=== PATIENT | female | born 1950 | race Caucasian/White ===

== ENCOUNTER → 2017-08-19 11:31 | Outpatient (CLI) | payer MEDICARE, OTHER, SELFPAY ==
--- NOTE | 2017-08-19 | DI.CT.S_ITS ---
PROCEDURE: CT CHEST ABD PEL W CON INDICATIONS: BILATERAL SCIATICA NEOPLASM OF BRAIN LOOKING FOR CANCER TECHNIQUE: After the administration of intravenous contrast, 5 mm thick sections acquired from the lung apices to the symphysis. 5 mm coronal and sagittal reformats were performed, with additional 7 mm MIP reformats through the lungs. For radiation dose reduction, the following was used: automated exposure control, adjustment of mA and/or kV according to patient size. COMPARISON: None. FINDINGS: Image quality: Excellent. CHEST: Lungs and pleura: No acute airspace opacities. No pleural effusions or pneumothorax. Central and peripheral airways appear patent and normal in caliber. Mediastinum: Heart size is normal. No pericardial effusion. No mediastinal or hilar adenopathy by size criteria. Thoracic aorta and central pulmonary arteries are normal in size. Esophagus is normal in caliber. No hiatal hernia. Chest wall: No axillary or supraclavicular adenopathy by size criteria. Thyroid gland appears normal. ABDOMEN: Solid organs: Liver is normal in size and enhancement. Gallbladder appears normal. Biliary system is non dilated. Pancreas enhances normally. Spleen is normal in size and enhancement. No adrenal nodules. Kidneys demonstrate normal size and enhancement, without hydronephrosis. Peritoneum and bowel: Bowel loops demonstrate normal wall thickness and caliber. No free fluid or air. Nodes and vessels: No retroperitoneal or mesenteric adenopathy by size criteria. Aorta and inferior vena cava are normal in size. Miscellaneous: No ventral hernias. PELVIS: Genitourinary: Bladder wall thickness is normal. Miscellaneous: No inguinal hernias or adenopathy. Sigmoid diverticulosis, no acute diverticulitis. Bones: No suspicious bony lesions. No vertebral body compression fractures. IMPRESSION: 1. The patient was not premedicated for potential intravenous contrast allergic reaction, and the study was performed with the supervising radiologist approval and with radiology department nursing staff present during the injection. The patient did report mild itching at the IV site of injection and also over the facial region near the lips. The patient remained in the radiology department for staged intermittent observation, the itching sensation resolved after 15 minutes, and the patient was advised that any future intravenous contrast injection will require a full premedication regimen given the potential risk of higher allergic contrast reactions. 2. No underlying infection or neoplasm found. Sigmoid diverticulosis without acute diverticulitis. Dictated by: Vickey Turner M.D. on 08/19/2017 at 14:06 Approved by: Vickey Turner M.D. on 08/19/2017 at 14:24
--- NOTE | 2017-08-19 | DI.MRI.S_ITS ---
PROCEDURE: MR LUMBAR SPINE WO/W CON INDICATIONS: LOW BACK PAIN TECHNIQUE: Noncontrast sagittal T1 spin echo and T2 fast spin echo, sagittal STIR, axial T1 and T2 fast spin echo through the lumbar spine. In cases with scoliosis, additional coronal T2 fast spin echo may be performed. After the administration of contrast, sagittal and axial T1 spin echo with fat saturation through the lumbar spine. COMPARISON: [facility], CT, ABDOMEN/PELVIS WITH CONTRAST, 04/19/2014, 9:46. [facility], CT, ABDOMEN/PELVIS WITH CONTRAST, 05/27/2017, 23:13. FINDINGS: Image quality: Excellent. Alignment and curvature: Mild dextroconvex scoliotic curvature is seen. Minimal anterolisthesis is seen at the L4-L5 level. Marrow: Marrow is of normal overall signal. No acute vertebral body compression fractures. No suspicious marrow enhancement. Scattered foci are seen, which are hyperintense on T1-weighted and T2-weighted imaging, which are most consistent with benign vertebral body hemangiomas. Spinal cord: Conus medullaris terminates at the L1 level. Visualized spinal cord demonstrates normal signal, without suspicious enhancement. Paraspinous soft tissues: No paravertebral masses or abnormal enhancement. T12-L1: Normal appearance. L1-L2: Normal appearance. L2-L3: Normal appearance. L3-L4: Mild loss of disc height is seen. Loss of disc signal is seen. Mcxn-hb-ffyvnxlg disc bulge is seen at this level, which is eccentric to the left. There is mild bilateral neural foraminal narrowing seen. Mild central canal narrowing is seen. L4-L5: Minimal anterolisthesis is seen at this level. The disc height is well-preserved. Loss of disc signal is seen at this level. Moderate generalized disc bulge is seen. Moderate to prominent facet hypertrophy is seen, left worse than right. Moderate hypertrophy of the ligamentum flavum can be seen. There is mild to moderate left-sided and mild right-sided neural foraminal narrowing seen. Moderate central canal narrowing is seen, as on series 5 image 12. L5-S1: The disc height is well-preserved. Loss of disc signal is seen at this level. Mild generalized disc bulge is seen. Ywvg-gn-bnbrarwi facet hypertrophy is seen. No significant neural foraminal or central canal narrowing are seen. IMPRESSION: No suspicious bony lesions or abnormal enhancement are detected. Numerous benign-appearing, nonenhancing vertebral body hemangiomas can be seen. Lumbar spine degenerative changes are seen, which are worst at the L4-L5 level. [id number] by: Luís Hernandez M.D. on 08/19/2017 at 11:46 Approved by: Luís Hernandez M.D. on 08/19/2017 at 11:54
== END ==
PROVIDERS: Family Provider Family Medicine; PCP Family Medicine
DX: M47.9 Spondylosis, unspecified (principal); D49.6 Neoplasm of unspecified behavior of brain; K57.30 Diverticulosis of large intestine without perforation or abscess without bleeding
CPT/HCPCS: 71260; 72158; 74177; A9579; Q9967

== ENCOUNTER → 2018-02-26 14:32 | Outpatient (CLI) | payer MEDICARE, OTHER, SELFPAY ==
--- NOTE | 2018-02-26 | DI.MG.S_ITS ---
BILATERAL DIGITAL SCREENING MAMMOGRAM 3D/2D WITH CAD: 02/26/2018 CLINICAL: Routine screening. Family history of breast cancer. Comparison is made to exams dated: 02/10/2017 mammogram, 01/10/2016 mammogram, and 01/08/2015 mamm[place] - [facility]. There are scattered fibroglandular elements in both breasts. Current study was also evaluated with a Computer Aided Detection (CAD) system. No significant masses, calcifications, or other findings are seen in either breast. There has been no significant interval change. IMPRESSION: NEGATIVE There is no mammographic evidence of malignancy. A 1 year screening mammogram is recommended. This exam was interpreted at Station ID: [id number]. NOTE: For mammograms, a report in lay terms will be sent to the patient. Approximately 15% of breast malignancies will not be visualized mammographically. In the management of a palpable breast mass, a negative mammogram must not discourage biopsy of a clinically suspicious lesion. Electronically Signed By: Tereso mchugh/joaquin:02/26/2018 18:19:34 letter sent: Normal Exam ACR BI-RADS Category 1: Negative [id number]
== END ==
PROVIDERS: Family Provider Family Medicine; PCP Family Medicine; Visit Provider Family Medicine
DX: Z12.31 Encounter for screening mammogram for malignant neoplasm of breast (principal); Z80.3 Family history of malignant neoplasm of breast
CPT/HCPCS: 77063; 77067

== ENCOUNTER → 2018-07-21 08:41 | Outpatient (CLI) | payer MEDICARE, OTHER, SELFPAY ==
--- NOTE | 2018-07-21 | DI.MRI.S_ITS ---
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 TECHNIQUE: Noncontrast axial T1 spin echo, axial T2 fast spin echo, sagittal and axial FLAIR, coronal T2 fast spin echo, axial gradient echo, axial diffusion and ADC through the brain. After the administration of contrast, axial and coronal 3D VIBE or T1 spin echo with fat saturation through the brain. COMPARISON: [facility], [facility], MRI HEAD W/WO CONTRAST, 06/29/2017, 13:24. FINDINGS: Image quality: Excellent. CSF Spaces: Basal cisterns are patent. No extra-axial fluid collections. Ventricles are normal in size and shape. Brain: No midline shift. No intracranial bleeds or new masses. No new area of abnormal intracranial enhancement. As was previously the case there is an ovoid mass lesion that appears centered within the hypothalamus, and invaginates against the floor of the third ventricle, protruding cephalad into the anterior third of the third ventricle with the component of this mass at that site having mildly enlarged from 7 mm to 8 mm in maximal dimension. The mass itself is estimated at measuring up to 1.0 cm AP and 1.3 cm craniocaudad from current sagittal flair imaging pulse sequence. A similar pole sequences not available from the comparison study from 06/29/17 but the mass was estimated in the same areas to measure 9 x 12 mm. The comparison study from 01/23/17 is not available for review. The brainstem appears normal. Diffusion-weighted images demonstrate no acute ischemic insults. No chronic ischemic insults. Normal intravascular flow voids are present. Skull and face: Calvarial marrow is normal in signal. Orbits appear normal. Sinuses: Sinuses and mastoids appear clear. IMPRESSION: 1. The patient has a series of brain MR studies from 01/23/17, 06/29/17 and the current examination 07/21/18. The first examination, from [facility], is not available for review and should be obtained and added to the PACS system here. An addendum report referencing the initial study is recommended when the images are available given what appears to be interval enlargement in size over time from the [facility] study to the current examination approximately one year later. 2. The mass lesion present is centered at the hypothalamus,, is enhancing, and appears to have enlarged by approximately 1 mm in all dimensions. Obstructive hydrocephalus is not currently present but represents a significant risk given enlargement over time. No new lesion elsewhere is seen. 3. 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 Dictated by: Vickey Turner M.D. on 07/21/2018 at 9:26 Approved by: Vickey Turner M.D. on 07/21/2018 at 10:02
== END ==
PROVIDERS: PCP Family Medicine; Visit Provider Family Medicine
DX: D46.9 Myelodysplastic syndrome, unspecified (principal)
CPT/HCPCS: 70553; A9579

== ENCOUNTER → 2019-03-09 10:31 | Outpatient (CLI) | payer MEDICARE, OTHER, SELFPAY ==
--- NOTE | 2019-03-09 | DI.MG.S_ITS ---
BILATERAL DIGITAL SCREENING MAMMOGRAM 3D/2D WITH CAD: 03/09/2019 CLINICAL: Routine screening. Family history of breast cancer. Comparison is made to exams dated: 02/10/2017 mammogram and 01/10/2016 mammogram - [facility]. There are scattered fibroglandular elements in both breasts. Current study was also evaluated with a Computer Aided Detection (CAD) system. No significant masses, calcifications, or other findings are seen in either breast. There has been no significant interval change. IMPRESSION: NEGATIVE There is no mammographic evidence of malignancy. A 1 year screening mammogram is recommended. This exam was interpreted at Station ID: [id number]. NOTE: For mammograms, a report in lay terms will be sent to the patient. Approximately 15% of breast malignancies will not be visualized mammographically. In the management of a palpable breast mass, a negative mammogram must not discourage biopsy of a clinically suspicious lesion. Electronically Signed By: Christine vigil/joaquin:03/09/2019 15:28:47 letter sent: Normal Exam ACR BI-RADS Category 1: Negative [id number]
== END ==
PROVIDERS: PCP Family Medicine; Visit Provider Family Medicine
DX: Z12.31 Encounter for screening mammogram for malignant neoplasm of breast (principal); Z80.3 Family history of malignant neoplasm of breast
CPT/HCPCS: 77063; 77067

== ENCOUNTER → 2019-04-20 15:07 | Outpatient (CLI) | payer MEDICARE, OTHER, SELFPAY ==
--- NOTE | 2019-04-20 15:12 | DI.RAD.S_ITS ---
PROCEDURE: XR LUMBAR SPINE MIN 4V INDICATIONS: Left lower extremity pain TECHNIQUE: 5 views of the lumbar spine were acquired. COMPARISON: None. FINDINGS: Bones: 5 nonrib-bearing vertebrae are present. There is mild dextroscoliotic bony alignment. No vertebral body compression fractures. No suspicious bony lesions. Degenerative disc disease is mild along the lumbosacral line and facet osteoarthritis becomes progressively more prominent from L3 inferiorly to the degree that significant foraminal stenosis likely is present at L4-5 and especially L5-S1. Soft tissues: Overlying bowel gas pattern is normal. No suspicious soft tissue calcifications. Oblique images: No pars defects. IMPRESSION: Mild degenerative disc disease, mild to moderate facet osteoarthritis, mild convex rightward scoliosis centered at L3. No recent compression fracture found. The area of potential significant foraminal stenosis is at L4-5 but to a greater degree L5-S1. Dictated by: Vickey Turner M.D. on 04/20/2019 at 16:22 Approved by: Vickey Turner M.D. on 04/20/2019 at 16:24
== END ==
PROVIDERS: PCP Family Medicine; Referring Provider Physical Medicine & Rehabilitation; Visit Provider Physical Medicine & Rehabilitation
DX: M79.605 Pain in left leg (principal); M51.37 Other intervertebral disc degeneration, lumbosacral region; M47.816 Spondylosis without myelopathy or radiculopathy, lumbar region; M41.86 Other forms of scoliosis, lumbar region; M51.26 Other intervertebral disc displacement, lumbar region; M25.559 Pain in unspecified hip; M16.9 Osteoarthritis of hip, unspecified; G89.29 Other chronic pain
CPT/HCPCS: 72110; 99214

== ENCOUNTER → 2019-04-27 12:29 | Outpatient (CLI) | payer MEDICARE, OTHER, SELFPAY ==
--- NOTE | 2019-04-27 12:30 | DI.MRI.S_ITS ---
PROCEDURE: MR LUMBAR SPINE WO CON INDICATIONS: Left L4-5 radicular TECHNIQUE: Noncontrast sagittal T1 spin echo and T2 fast echo, sagittal STIR, axial T1 and T2 fast spin echo through the lumbar spine. In cases with scoliosis, additional coronal T2 fast spin echo may be performed. COMPARISON: [facility], MR, MR LUMBAR SPINE WO/W CON, 08/19/2017, 12:01. FINDINGS: Image quality: Excellent. Alignment and Curvature: Mild degenerative anterolisthesis of L4 on L5 measuring 3 mm. Trace degenerative retrolisthesis of L3 on L4. Bone Marrow: Marrow is of normal overall signal. No acute vertebral body compression fractures. Spinal Cord: Conus medullaris terminates at the L1-L2 level. Visualized cord demonstrates normal signal and size. Paraspinous Soft Tissues: No paravertebral masses. L1-L2: Normal appearance. L2-L3: Normal appearance. L3-L4: No significant change. Mild disc height loss. Mild disc bulge. Mild facet hypertrophy. Mild canal stenosis. No significant foraminal stenosis. L4-L5: Mild degenerative anterolisthesis of L4 on L5, slightly progressed, secondary to prominent facet arthropathy. Interval increase in diffuse disc bulge, large. Interval progression of canal stenosis, now severe. Mild bilateral foraminal narrowing. L5-S1: Posterior annulus tear plus mild disc bulge. Facet and ligament hypertrophy. No canal stenosis or foraminal stenosis. IMPRESSION: 1. Interval progression of multifactorial canal stenosis at L4-L5, now severe. 2. Mild canal stenosis at L3-L4. 3. Multilevel facet arthropathy. Dictated by: Robert Rose M.D. on 04/27/2019 at 13:09 Approved by: Robert Rose M.D. on 04/27/2019 at 13:16
== END ==
PROVIDERS: PCP Family Medicine; Referring Provider Family Medicine; Visit Provider Physical Medicine & Rehabilitation
DX: M47.26 Other spondylosis with radiculopathy, lumbar region (principal); M48.061 Spinal stenosis, lumbar region without neurogenic claudication; M25.559 Pain in unspecified hip; G89.29 Other chronic pain
CPT/HCPCS: 72148

== ENCOUNTER → 2019-09-20 11:00 | Outpatient (CLI) | payer MEDICARE, OTHER, SELFPAY ==
[2019-09-20 12:01] LABS: Add Manual Diff / Slide Review NO; Basophils Absolute Auto 0 /uL (0-100); Basophils Percent Auto 0.7 % (0-2); Eosinophils Absolute Auto 100 /uL (0-450); Eosinophils Percent Auto 3.5 % (2-4); Hematocrit 41.2 % (36-46); Hemoglobin 13.7 g/dL (12.0-16.0); Lymphocytes Absolute Auto 1300 /uL (1100-4500); Mean Corpuscular HGB Conc 33.2 % (30-36); Mean Corpuscular Hemoglobin 30.7 PG (26-34); Mean Corpuscular Volume 92.4 fL (80-100); Monocytes Absolute Auto 500 /uL (0-900); Monocytes Percent Auto 12.4 % (3-14); Neutrophils Absolute Auto 1800 /uL (1500-7000); Neutrophils Percent Auto 48.4 % (50-75); Platelet Count 279 X10^3/uL (150-400); Red Blood Cell Count 4.46 X10^6/uL (4.0-5.2); Red Cell Distribution Width 14.1 % (11.6-14.8); White Blood Cell Count 3.8 X10^3/uL (4.5-11.0)
[2019-09-20 12:18] LABS: Hemoglobin A1C% w Est Avg Glu 6.8 % (4.0-6.0)
[2019-09-20 12:36] LABS: Carbon Dioxide 28 mmol/L (22-32); Chloride 99 mmol/L (98-107); HEMOLYSIS < 15 (0-50); Potassium 4.8 mmol/L (3.4-5.1); Sodium 133 mmol/L (137-145)
== END ==
PROVIDERS: PCP Family Medicine; Referring Provider Orthopaedic Surgery; Visit Provider Orthopaedic Surgery
DX: Z01.812 Encounter for preprocedural laboratory examination (principal); Z01.818 Encounter for other preprocedural examination; R73.9 Hyperglycemia, unspecified
CPT/HCPCS: 36415; 80051; 83036; 85025; 93005

== ENCOUNTER 2019-09-28 06:16 | Inpatient (IN) | payer MEDICARE, OTHER, SELFPAY ==
[2019-09-21 08:54] VITALS: BMI 22.1
[2019-09-28] VITALS (24 sets, daily range): BP systolic 44–162; BP diastolic 30–85; PULSE 38–80; RESP 9–17; TEMP 35.3–36.6; O2SAT 95–100; BMI 22.3
--- NOTE | 2019-09-28 | DI.RAD.S_ITS ---
PROCEDURE: XR PELVIS 1-2V INDICATIONS: POST OP TECHNIQUE: Single frontal view(s) of the pelvis acquired. COMPARISON: None. FINDINGS: Bones: No fractures or dislocations and postoperative appearance of left total hip arthroplasty shows normal alignment.. No suspicious bony lesions. Soft tissues: Visualized bowel gas pattern is normal. No suspicious soft tissue calcifications. IMPRESSION: Normal alignment is stab wished after left total hip arthroplasty. Mild to moderate osteoarthritis noted at the right hip. Dictated by: Vickey Turner M.D. on 09/28/2019 at 12:38 Approved by: Vickey Turner M.D. on 09/28/2019 at 14:03
[2019-09-28] MEDS: CELECOXIB 200 MG CAPSULE PO (07:04)
[2019-09-28] MEDS: LACTATED RINGERS 1,000 ML 42 ML IV ×2 (07:08→10:22)
[2019-09-28] MEDS: ACETAMINOPHEN 325 MG TABLET 975 MG PO (07:42)
--- NOTE | 2019-09-28 07:42 | SUR.PREOP ---
Per Dr. Coates, verbal order received to give only 650mg of Tylenol in pre-op as pt took 250mg of Tylenol this morning at 0530 prior to coming in to facility for surgery.
[2019-09-28] MEDS: CEFAZOLIN 2 GM/100 ML FROZ.PIGGY IV ×3 (08:00→23:27)
--- NOTE | 2019-09-28 08:04 | PM.PREOP ---
Pre-operative Note COVID-19 COVID-19 status: Negative Result date/Date tested (Pos, Neg/Pending): 09/26/19 Interval Note History & Physical reviewed/Exam performed by Physician: Yes Changes to H&P: No
--- NOTE | 2019-09-28 08:04 | PM.HP.1 ---
History of Present Illness History of Present Illness Date Patient Seen: 09/28/19 Time Patient Seen: 08:04 Chief complaint: Left Total Hip Arthroplasty *OPB* Narrative: 69-year-old female with severe left hip degenerative joint disease, admitted for left total hip arthroplasty. Patient History Medical History Anxiety about health (Acute) Brain tumor (benign) (Acute 12/2018) Chronic hip pain (Acute) Degenerative joint disease (DJD) of hip (Acute) Gastritis (Acute) Herniated nucleus pulposus, L4-5 (Acute) HTN (hypertension) (Acute) Hx of hypertensive crisis (Acute 12/2018) Hypothyroid (Acute) Pelvic floor dysfunction (Acute) Type II diabetes mellitus (Acute) Surgical History History of bilateral salpingo-oophorectomy (BSO) (Acute) History of bladder surgery (Acute 12/2017) History of vaginal hysterectomy (Acute) Hx of cholecystectomy (Acute 08/16/19) Hx of tonsillectomy (Acute) Family & Social History Family History Father Diabetes mellitus Colon cancer Mother Diabetes mellitus Family/Other Hussein disease Family/Other Cancer Social History: household members spouse Prior Living Arrangements House Safety & Behavioral: Feels Safe in Current Yes Environment Been Physically Hurt or No Threatened By a Person Suicidal Ideation Description None Suicide Plan Description No Plan Tobacco & Substance use: Smoking Status Never smoker alcohol intake never Substance Use Type does not use Meds Home Medications and Allergies Home Medications Medication Instructions Recorded Confirmed Type alprazolam 0.25 mg PO BEDTIME #0 05/27/17 09/28/19 History diazepam [Valium] 2.5 mg PO DAILY PRN #0 05/27/17 09/28/19 History estradiol [Estrace] 1 gm VAGINAL 2XW #0 05/27/17 09/28/19 History levothyroxine [Synthroid] 25 mcg PO QDAY #0 05/27/17 09/28/19 History meclizine 12.5 mg PO DAILY PRN #0 05/27/17 09/28/19 History pantoprazole [Protonix] 40 mg PO QDAY #20 tab 05/28/17 09/28/19 Rx acetaminophen 325 mg capsule 500 mg PO BID cap 03/09/19 09/28/19 History cholecalciferol (vitamin D3) 125 2,000 unit PO DAILY 03/09/19 09/28/19 History mcg (5,000 unit) capsule metoprolol succinate 50 mg capsule 50 mg PO DAILY 03/09/19 09/28/19 History sprinkle, ext. release 24 hr diphenhydramine HCl [Benadryl] 12.5 mg PO DAILY PRN 09/21/19 09/28/19 History hydrocodone-acetaminophen 0.5 tab PO Q4-6H PRN 09/21/19 09/28/19 History metformin 1,000 mg PO DAILY 09/21/19 09/28/19 History Allergies Allergy/AdvReac Type Severity Reaction Status Date / Time IVP dye Allergy Mild itching Uncoded 09/21/19 09:01 Review of Systems Review of Systems ROS: Yes All systems reviewed with the patient and are negative except as otherwise documented Exam Vital Signs (past 8 hours): - 09/28/19 06:51 Temperature 97.8 F Pulse Rate 69 Respiratory Rate 17 Blood Pressure 162/85 H Pulse Oximetry 100 Oxygen Delivery Method Room Air Narrative Exam Narrative: Patient is afebrile and vital signs are stable. Awake alert oriented and conversant in no obvious distress. HEENT normocephalic atraumatic lungs clear to auscultation Heart regular rate and rhythm Abdomen benign Lower extremities neurovascular examination is intact. Limited left hip range of motion with pain on extremes of motion. Assessment & Plan Assessment & Plan narrative: 69-year-old female with severe left hip DJD. Plan left total hip arthroplasty. COVID-19 COVID-19 status: Negative Result date/Date tested (Pos, Neg/Pending): 09/26/19
--- NOTE | 2019-09-28 08:39 | SUR.OPER ---
Lateral on padded OR bed. Gel axillary roll. Arms secured on padded armboard with pillow supporting top arm. Padded hip positioner braces x4 - anterior and posterior chest and pelvis. Additional gel pad used anterior pelvis. Gel pad under bottom leg from knee to foot and secured with tape over sheet.
[2019-09-28] MEDS: MORPHINE 4 MG/ML INJ INJ (08:47)
[2019-09-28] MEDS: ROPIVACAINE 0.5% PF 5 MG/ML 20ML VIAL 10 ML INJ (08:47)
[2019-09-28] MEDS: KETOROLAC 30 MG/ML VIAL INJ (08:48)
[2019-09-28] MEDS: TRANEXAMIC ACID 1,000 MG VIAL 1000 MG INJ ×2 (09:11→09:18)
--- NOTE | 2019-09-28 09:52 | P.OP_ITS ---
Operative Date/Time/Diagnoses Date of procedure: 09/28/19 Time of procedure: 09:52 Pre-op diagnosis: Left hip degenerative joint disease Post-op diagnosis: same Procedure & Clinicians Procedure: Left total hip arthroplasty (CPT code 87267 with assistant superintendent for curriculum) Same procedure as scheduled: Yes Indications: 69-year-old female with severe left hip DJD. Pain with activities and at rest, limited ambulation activity tolerance, difficulties with ADLs, and failure of conservative treatment. Discussed nature of condition, treatment options risks and benefits. Patient elected proceed with total hip arthroplasty and gives informed consent. Surgeon: Ranjit Adkins Arch Cushion Skiving Machine Operator: Jose Enrique Calero Anesthesia Type: General and Spinal Operative Notes Closure Type: primary Specimen(s): none sent Prosthetic devices, grafts, tissues, transplants, or devices: Acetabulum: [employer] R3 acetabular component size 48 mm Femoral component: [employer] Anthology stem size 6 with high offset Femoral head: 32 mm + 4 Oxinium Estimated Blood Loss (mL): 100 Procedure in detail: After satisfaction induction of anesthetic, and administration of IV antibiotics, the patient was positioned in the lateral decubitus position with all bony prominences well padded and pelvic position secured using a hip microbiological laboratory technician positioning device. Left hip and lower extremity prepped and draped in the usual sterile fashion, 1st dose of intravenous tranexamic acid was administered, then a longitudinal incision was created centered over the greater trochanter and carried sharply through the skin and subcutaneous tissues down to the fascia celi which was divided longitudinally and retracted with a Charnley retractor. External rotators visualize, cut, tagged, and retracted posteriorly, then the capsule was cut in a T-type fashion with the corners tagged and retracted. Hip was dislocated and femoral neck cut made according to preoperative templating. Acetabular retractors then placed, and the acetabular labrum and osteophytes were excised. The acetabulum was then sequentially reamed to 47 mm with an excellent circumferential ream and fit with the trial. Trial was then removed. There is a large superolateral acetabular cyst which was debrided of the cyst lining then packed with bone graft taken f rom the reamings. A permanent size 48 mm James [employer]hew R3 acetabular component was selected, positioned, and impacted with satisfactory position and fixation achieved. Large anterior osteophyte was then removed. Permanent liner was then inserted with the elevated lip directed posteriorly. Soft tissue then removed off the lateral femoral neck in the lateral neck was entered using a box osteotome. T-handled reamers placed down the canal followed by sequential broaching to 6 with the final broach left in place for trial reduction which demonstrated excellent leg length, range of motion, and stability characteristics with a 32 mm + 4 trial ball with an extended offset neck. The trial and broach were removed, and a permanent size 6 high offset [employer] Anthology stem was selected and inserted with excellent position and fixation achieved. Another trial reduction yielded the above characteristics so the trial ball was exchanged for a permanent 32 mm +4 Oxinium ball. The hip was irrigated and reduced and excellent leg length range of motion and stability characteristics were achieved and maintained. Periarticular tissues were infiltrated with ropivacaine, morphine, and Toradol. The hip was copiously irrigated, and the capsule repaired with #2 Ethibond, and the piriformis was repaired back to the greater trochanter with the same. Fascia celi closed with interrupted #1 Ethibond sutures, and the subcutaneous tissues were closed in 2 layers of 0 Vicryl and 2 0 Vicryl. Skin was closed with angeline and sterile dressings applied. Second dose of tranexamic acid was administered intravenously, and the anesthetic was terminated. Complications: none Post-operative Condition: stable Disposition: PACU Plan for aftercare: Patient will be admitted to the acute care [facility], and anticipate discharge on postop day 1 with follow-up in office in 10-14 days. Outpatient physical therapy will be arranged and patient will continue to observe posterior hip precautions. Patient will continue use of postoperative aspirin for 6 weeks postop.
[2019-09-28] MEDS: ONDANSETRON 4 MG/2 ML INJ IV ×3 (10:02→15:46)
[2019-09-28] MEDS: LORazepam 2 MG/ML INJ 0.25 MG IV (10:38)
[2019-09-28] MEDS: LACTATED RINGERS 1,000 ML 100 ML IV ×2 (13:04→16:27)
--- NOTE | 2019-09-28 13:45 | PC.NURSE ---
Pt to room 218 at 1125 via bed from PACU-post right INOCENCIA pt was alert and oriented x 3. Pt able to assist with admission questions and Spouse is at the bedside. Pt denies pain but states she has a little bit of burning at her incision. Ice pack to right hip bulky dsg which is CDI. Pt oriented to room, call light, bed controls and tv controls. Bed alarm for safety and Pt agrees to call for assistance as needed and to not get up without help. SCD's are on and running and IVF infusing as ordered. Pt given a clear liquid tray and is drinking broth. 1326 Pt initial bp was 141/63 Pt has been sleeping - new bp result at 1326 was 44/30-Pt very pale and drowsy, NS bolus 1L give, MARY Hammer notified, Pt is coherent, BP at 1336 84/42, then 96/50, 1345 106/60 hr 60. BG 160. EBL during surgery was 100cc. Pt states she if feeling anxious and is asking for her diazepam which is a home med that she takes chronically. Will assist Pt with bedpan use to void as she is not safe to get up to bsc at this time.
--- NOTE | 2019-09-28 13:52 | PC.NURSE ---
Notified RN of drop in BP and condition
[2019-09-28] MEDS: SODIUM CHLORIDE 0.9% 1,000 ML 1000 ML IV (14:04)
--- NOTE | 2019-09-28 14:14 | PC.NURSE ---
Checked patients CBG due to large drop in BP.
[2019-09-28] MEDS: ACETAMINOPHEN 325 MG TABLET 650 MG PO ×2 (14:54→21:03)
[2019-09-28] MEDS: diazePAM 2 MG TABLET 2.5 MG PO (15:00)
--- NOTE | 2019-09-28 15:27 | PT-IP ANOTE ---
checked with nurse and stated that pt is not ready for PT. BP: 44/30 and is receiving bolus IV. checked again after ~ 1 hour and stated that pt continues to have low BP. will f/u tomorrow.
[2019-09-28] MEDS: OXYCODONE IR 5 MG TABLET PO ×2 (18:00→21:03)
[2019-09-28] MEDS: ALPRAZolam 0.25 MG TABLET PO ×2 (18:01→23:25)
[2019-09-28] MEDS: ASPIRIN EC 81 MG TABLET PO (21:03)
[2019-09-28] MEDS: DOCUSATE 100 MG CAPSULE PO (21:03)
[2019-09-28] MEDS: METFORMIN 1 EACH TOP (21:05)
[2019-09-29] VITALS (8 sets, daily range): BP systolic 83–132; BP diastolic 42–73; PULSE 73–95; RESP 16–18; TEMP 36.1–37.4; O2SAT 97–100
[2019-09-29] MEDS: OXYCODONE IR 5 MG TABLET PO ×6 (01:00→21:03)
[2019-09-29] MEDS: LACTATED RINGERS 1,000 ML 100 ML IV (03:07)
[2019-09-29 05:29] LABS: Hematocrit 29.6 % (36-46); Hemoglobin 10.1 g/dL (12.0-16.0)
[2019-09-29] MEDS: PANTOPRAZOLE 40 MG TABLET PO (05:44)
[2019-09-29] MEDS: LEVOTHYROXINE 25 MCG TABLET PO (05:47)
[2019-09-29] MEDS: ALPRAZolam 0.25 MG TABLET 0.125 MG PO ×3 (05:48→18:08)
[2019-09-29] MEDS: ASPIRIN EC 81 MG TABLET PO ×2 (08:17→21:02)
[2019-09-29] MEDS: DOCUSATE 100 MG CAPSULE PO ×2 (08:17→21:03)
[2019-09-29] MEDS: CHOLECALCIFEROL (VITAMIN D3) 1,000 UNIT TABLET 2000 UNIT PO (08:17)
[2019-09-29] MEDS: METFORMIN 1 EACH TOP ×2 (08:18→21:03)
[2019-09-29] MEDS: ACETAMINOPHEN 325 MG TABLET 650 MG PO ×3 (08:18→21:02)
--- NOTE | 2019-09-29 08:58 | PT.IIE ---
Current Diagnoses Unilateral primary osteoarthritis, left hip (09/28/19) Surgery Performed Operation Date: 09/28/19 07:45 Actual Procedures p Total Hip Arthroplasty(Left) - Ranjit Adkins MD Surgical History (Last Reviewed 09/28/19 @ 08:07 by Ranjit Adkins MD) History of bilateral salpingo-oophorectomy (BSO) (Acute) History of bladder surgery (Acute 12/2017) History of vaginal hysterectomy (Acute) Hx of cholecystectomy (Acute 08/16/19) Hx of tonsillectomy (Acute) Medical History (Last Reviewed 09/28/19 @ 08:07 by Ranjit Adkins MD) Anxiety about health (Acute) Brain tumor (benign) (Acute 12/2018) Chronic hip pain (Acute) Degenerative joint disease (DJD) of hip (Acute) Gastritis (Acute) Herniated nucleus pulposus, L4-5 (Acute) HTN (hypertension) (Acute) Hx of hypertensive crisis (Acute 12/2018) Hypothyroid (Acute) Pelvic floor dysfunction (Acute) Type II diabetes mellitus (Acute) Physical Therapy Inpatient Evaluation/Re-Eval M1 PT/OT-IP Prior Functional Status Start: 09/29/19 12:26 Freq: NEEDED Status: Active Protocol: Document 09/29/19 08:58 AB (Rec: 09/29/19 12:46 AB [id number]) Medical Review Prior Functional Status Medical History Reviewed Yes Communication able to make needs known Mobility and Gait pt stated that she is modified independent with all mobilities and ambualtion without AD but has been using a SPC for the last month due to hip pain Social History Household Members spouse Living Arrangements House Number of Floors (Floors) Two Floors Number of Stairs To Enter/Railing? pt stays on main level of the house has 3 steps to enter with wide rails stated that her daughter will be staying with them for 1 week to assist her Home Environment Standard Height Toilet,Walk in Shower Home Equipment Front Wheel Walker,Straight Cane,Raised Toilet Seat w/ Armrests,Hand Held Shower Employment Status Retired M2 PT-IP Current Condition Start: 09/29/19 12:26 Freq: NEEDED Status: Active Protocol: Document 09/29/19 08:58 AB (Rec: 09/29/19 12:46 AB [id number]) Physical Therapy Current Condition Current Condition Evaluation Date 09/29/19 Treatment Diagnosis s/p L INOCENCIA posterior approach; difficulty in walking Onset Date 09/28/19 Precautions Posterior Hip Precautions No Hip Flexion > 90 degrees,No Hip Internal Rotation,No Hip Adduction Weight Bearing Status Weight Bearing Status Weight Bear as Tolerated Allowed Weight Bearing Amount (enter % LLE WBAT or #) (%) M3 PT-IP Subjective Start: 09/29/19 12:26 Freq: NEEDED Status: Active Protocol: Document 09/29/19 08:58 AB (Rec: 09/29/19 12:46 AB [id number]) Subjective Physical Therapy Visit Type Type Initial Evaluation Visit Start Time 08:58 Visit Stop Time 09:45 Total Visit Minutes 47 Number of NEIGHBORHOOD PLANNER Visits 0 Physical Therapy Visit Comments Patient Comments agreeable to do PT Therapy Pain Assessment Pain When Pain Assessed At Rest Pain Present Pain Present Pain Reported Location left hip Intensity 7 Scale Used Numeric (0 - 10) Pain Management Techniques Modification of Treatment,Re- positioning,Timing of Activity with Medications M4 PT-IP Mobility and Gait Start: 09/29/19 12:26 Freq: NEEDED Status: Active Protocol: Document 09/29/19 08:58 AB (Rec: 09/29/19 12:46 AB [id number]) PT-Bed Mobility Assessment Supine to Sit Supine to Sit Standby Assistance,1 Person Assistance PT-Transfer Assessment Sit to and From Stand Sit to and from Stand Minimal Assistance,1 Person Assistance,Use of Upper Extremities Equipment Transfer Assistive Device Gait Belt,Front Wheeled Walker Orthotic/Prosthetic Devices or Brace: No Transfers Transfer Destination Bedside Commode Transfer Technique Stand Step Pivot Transfer Ability Level of Assist Minimal Assistance,1 Person Assistance,Use of Upper Extremities Comments Mobility Comments BP in supine: 120/42. educated on hip precautions. completed supine to sit SBA and was able to sit on EOB SBA . pt requested to use the toilet. BP sitting : 128/64. c/o dizziness. completed sit to stand min A and cues and step transfer using fWW to bedside commode. BP after transfers: 99/50. pt completed sit to stand from bedside commode min A and required CGA to maintain standing balance and assist to manage brief. pt transferred back to bed using FWW min A. pt rested. BP checked: 116/ 71. pt agreed to ambulated and completed ~ 20 ft using FWW min A. c/o dizziness. pt seated on chair. BP checked: 83/50. elevated LE and positioned pt on chair. CP checked again: 112/53. nurse aware of low BP. call light and table placed within reach. Gait Assessment Gait Gait Assistance Required: Minimum Assistance Distance (Feet) 20 Able to Maintain Weight Bearing Status Yes During Gait Assistive Devices Assistive Device Gait Belt,Front Wheeled Walker Orthotic/Prosthetic Devices or Brace: No Gait Deviations General Gait Pattern Antalgic,Decreased Stride Length,Decreased Feet Clearance,Step-to Gait Factors Limiting Gait Function Factors Limiting Gait Function Decreased Activity Tolerance, Decreased Strength,Limited Range of Motion,Pain,Poor Balance PT-Balance Assessment Sitting Balance and Reactions Static Sitting Balance Ability Good Dynamic Sitting Balance Ability Good Standing Balance and Reactions Static Standing Balance Ability Fair Dynamic Standing Balance Ability Fair Device Used FWW M5 PT-IP Objective Assessments Start: 09/29/19 12:26 Freq: NEEDED Status: Active Protocol: Document 09/29/19 08:58 AB (Rec: 09/29/19 12:46 [id number]) Orientation Orientation/Cognition Level of Alertness Alert Orientation Name,Age,Place,Situation Language Function Ability No Deficits Noted Safety Awareness Decreased Safety Awareness Memory Description Short Term Impaired Gross Range of Motion Lower Extremity ROM Assessment Within Functional Limits Strength Lower Extremity Strength Assessment Left Impaired Hip 3+/5 Knee 4-/5 Coordination Assessment Gross Coordination Gross Coordination WNL Sensation Assessment Sensation Gross Sensation WNL Muscle Tone Muscle Tone WNL Yes M6 PT-IP Treatment Start: 09/29/19 12:26 Freq: NEEDED Status: Active Protocol: Document 09/29/19 08:58 AB (Rec: 09/29/19 12:46 [id number]) Physical Therapy Treatment Exercises Exercises Heel Slides Education Education Provided Precautions,Weight Bearing Status,Post-Op Packet,Safety M7 PT-IP Assessment and Plan Start: 09/29/19 12:26 Freq: NEEDED Status: Active Protocol: Document 09/29/19 08:58 AB (Rec: 09/29/19 12:46 [id number]) PT Summary Assessment and Plan Potential Rehabilitation Potential Good Status of Condition at Evaluation Evolving Summary Impairments Pain,ROM,Strength,Balance, Coordination,Sensation,Bed Mobility,Transfers,Gait, Activity Tolerance Assessment Summary pt requiring min A with mobility and unable to tolerate much activity this morning with c/o dizziness and BP decreased to 83/50 after ambulation. d/c plan depending on progress but pt plans to go home and will have her spouse and carlosughte to assist her. pt stated that she is also set up for outpt PT. will continue to assess progress and if needed, caregiver training will be conducted and stair climbing trainign will also be completed prior to d/c. Goals Bed Mobility Goal Independent Transfer Goal Independent,Front Wheeled Walker Gait Goal Independent,Front Wheel Walker Gait Distance 150 Other Goals up/down 3 steps 1 rail SBA Days to Meet Goals 5 Frequency of Treatment Frequency Of Treatment Twice a Day Treatment Plan Physical Therapy Treatment Plan Bed Mobility Training,Transfer Training,Gait Training, Therapeutic Exercise,Balance Retraining,Post Op Education, Discharge Planning,Hot or Cold Pack,Neuromuscular Re-ed, Coordination Retraining,Manual Therapy Other Recommendations and Next Treatment ambulation, caregiver training Focus and stair climbing when appropriate Recommendations To Nursing Amount of Assist Needed 1 Person Assist Discharge Recommendations PT Discharge Recommendations Home with Assistance, Outpatient PT Transportation Needs at Discharge Private Vehicle
--- NOTE | 2019-09-29 08:59 | CM.DANOTE ---
Discharge Planning/Care Management DCP: assessment: case received, EMR reviewed. Pt is a 69 year old female who admitted yesterday for a scheduled L INOCENCIA: surgeon: Dr. Adkins Payer: Medicare and Commercial Insurance Admission status: In review: per UR CAROLE Crump PT attempted to see pt for first time yesterday afternoon but she was not yet medically stable to work with therapists. PT Amalia will see pt this morning. A d/c order for home is already in place. Pt identified her pre-op plan in phone conversation with with RN CAB: 09/21: as home setting with Yadiel's support as well as the support of her daughter Mayra. P: will discuss more in Team Rounds, await PT evaluation and then follow up with pt for any d/c needs that may arise. Pt does live on [facility] and her d/c will need to incorporate ferry times/[facility] can provide priority board. Advanced directive, confirm from FAMILY Start: 09/28/19 12:15 Freq: Q24H Status: Active Protocol: Document 09/28/19 12:17 CJW (Rec: 09/28/19 12:17 CJW [id number]) Advance Directive, confirm on record Time 12:17 Person contacted Pt and Spouse Copy received No Copy received No Advanced directive available on record No CM Discharge Assessment Start: 09/29/19 08:57 Freq: Status: Active Protocol: Document 09/29/19 08:57 ITV (Rec: 09/29/19 08:58 ITV [id number]) Discharge Planning Assessment Advance Directives? Yes Advance Directives on File No History Provided By Medical Record Prior Living Arrangements House Household Members spouse Review Status In Process Pre-Anesthesia Assessment Start: 09/21/19 08:54 Freq: Status: Active Protocol: Document 09/21/19 08:54 CAB (Rec: 09/21/19 09:45 CAB [id number]) Pre-Anesthesia Assessment Patient Information Reviewed Via Phone Assessment Assessment Completed With Patient Diagnostic Results CBC,EKG,Electrolytes Comment Labs/EKG @ [facility] 09/20/19-COVID screen @ [facility] 09/26/19 Primary Care Provider Demond Carlson Seen Specialist in Last 12 Months Yes Specialist Seen Orthopedist,Other Comment Neurology Primary Language Mohawk Cloth Desizing Range Tender Required No Height 166.37 cm Weight 61.235 kg Body Mass Index (BMI) 22.1 Hearing Ability Normal Visual Impairment No Limitations Visual Assist None Dentition Type Teeth, Natural Present Barriers to Learning None Other Aids Yes: Mouth guard Hx Anesthesia Reactions Yes: Hypertensive Crisis in recovery s/p brain tumor biopsy, Nausea Hx Family Anesthesia Reaction No Hx Malignant Hyperthermia No Hx Blood Transfusions No Anesthesia Review Requested No alcohol intake never Smoking Status Never smoker Substance Use Type does not use Pain Present Pain Reported Musculoskeletal Symptoms Abnormal Gait,Back Pain, Difficulty Walking,Joint Pain History of Falling (Recent or History of No ) Patient is completely paralyzed or No completely immobile Prosthesis or Orthotic Device Cane Mental Status Oriented to own ability Is patient on oxygen? No Does patient have AYALA/SOB No Hx Sleep Apnea No Currently Taking a Beta Alanna Yes: Metoprolol Can You Climb a Flight of Stairs Without Yes SOB Hx Chest Pain No Hx SOB No Hx Syncope or Dizziness Yes: Occasional lightheadedness in the evenings, feels r/t metoprolol Anti-Coagulant Therapy No Has a Patrol Deputy Sheriff No Cardiac Testing No Hx Pacemaker/ICD No Pacemaker Rep Required? No Cardiac Clearance Received Not Applicable Diet Type At Home Ketogenic dysphagia No Genitourinary Symptoms Pelvic Pain Bladder Pattern Incontinent,Urgency Urinary Catheter Present No Hx Urinary Self Catheterization No Diabetes Yes HgbA1C 6.8 Date 09/20/19 Patient No Lactating No Presence of External or Internal Medical Yes: Mouth guard, plate in Devices head Have you had any close contact with No someone diagnosed with COVID-19? Marital Status Lives With spouse Prior Living Arrangements House Number of Floors (Floors) Two Floors Support System Child/Children,Spouse Does the Patient Have Assistance After Yes: Daughter will also fly in Surgery to stay w/pt Patient Discharge Plan Description Return Home Comment Lives on [place]-pt advised overnight length of stay per surgeon Feels Safe in Current Environment Yes Been Physically Hurt or Threatened By a No Person in Current Environment Do you have thoughts of harming yourself None or others? Are you currently considering suicide? No Do you have a plan to hurt yourself or No Plan others? Do You Have Any Spiritual Beliefs That No May Affect Your HC Choices? Do You Have Any Cultural Practices That No May Affect Your HC Choices? Comment LDS Who Can We Speak to About Patient's Care Family, friends Identifying Code for Release of Patient Declines to issue Information Health Care Proxy/Next of Kin Yadiel () Health Care Proxy Emergency Contact Name Yadiel () Mayra ( daughter) Emergency Contact Phone Number Yadiel: [phone] Mayra: pt will update dos Advance Directives? Yes Advance Directives on File No Requested Patient Bring Advanced Yes Directives DOS Power of Casino Gaming Worker Yes Power of Casino Gaming Worker Name Yadiel () Power of Casino Gaming Worker PAC Instructions Do not shave/clip surgical site,Durable medical equipment ,Medications to take/avoid, Nasal antibiotic,No ETOH/ petroleum product on skin DOS, NPO,Post-op transportation,Pre -surgical wash,Sturdy shoes/ comfortable clothes,Do not bring valuables and remove jewelry
--- NOTE | 2019-09-29 11:54 | PC.NURSE ---
Addendum entered by Jayde Vargas R.N. 09/29/19 13:59: Patient just medicated with oxycodone. Just getting up with physical therapy. BP remains low 100s/49s and 50s. She states that she was a bit nauseated but this seems to have passed. Working well with physical therapy. Daughter up from [place] and going to be helping patient when she goes back home to [facility]. Original Note: Patient is A&Ox3. She has a l.hip dressing that is bulky s any drainage present. Up with 1 person assist and walker. Given 1 oxycodone for complaints of 5/10 pain and helpful. Patient did get up with physical therapy and her Blood Pressure did go soft at 80s/50s, patient was dizzy but did not have any syncopal episode. Her blood pressure went back to normal after sitting down in the chair for a few minutes. She is comfortable now and cms wnl x2.
--- NOTE | 2019-09-29 13:20 | PT.IPTN ---
Current Diagnoses Unilateral primary osteoarthritis, left hip (09/28/19) Surgery Performed Operation Date: 09/28/19 07:45 Actual Procedures p Total Hip Arthroplasty(Left) - Ranjit Adkins MD Physical Therapy Treatment Note M2 PT-IP Current Condition Start: 09/29/19 12:26 Freq: NEEDED Status: Active Protocol: Document 09/29/19 08:58 AB (Rec: 09/29/19 12:46 AB [id number]) Physical Therapy Current Condition Current Condition Evaluation Date 09/29/19 Treatment Diagnosis s/p L INOCENCIA posterior approach; difficulty in walking Onset Date 09/28/19 Precautions Posterior Hip Precautions No Hip Flexion > 90 degrees,No Hip Internal Rotation,No Hip Adduction Weight Bearing Status Weight Bearing Status Weight Bear as Tolerated Allowed Weight Bearing Amount (enter % LLE WBAT or #) (%) M3 PT-IP Subjective Start: 09/29/19 12:26 Freq: NEEDED Status: Active Protocol: Document 09/29/19 13:20 AB (Rec: 09/29/19 16:18 AB [id number]) Subjective Physical Therapy Visit Type Type Treatment Note Visit Start Time 13:20 Visit Stop Time 14:48 Total Visit Minutes 88 Number of GAS PIPE LAYER Visits 0 Physical Therapy Visit Comments Patient Comments pt is agreeable to do PT; daughter in room with pt Therapy Pain Assessment Pain When Pain Assessed At Rest Pain Present Pain Present Pain Reported Location left hip Intensity 5 Scale Used Numeric (0 - 10) Pain Management Techniques Distraction,Re-positioning, Timing of Activity with Medications M4 PT-IP Mobility and Gait Start: 09/29/19 12:26 Freq: NEEDED Status: Active Protocol: Document 09/29/19 13:20 AB (Rec: 09/29/19 16:18 AB [id number]) PT-Bed Mobility Assessment Supine to Sit Supine to Sit Standby Assistance,Head of Bed Elevated Sit to Supine Sit to Supine Moderate Assistance,1 Person Assistance PT-Transfer Assessment Sit to and From Stand Sit to and from Stand Contact Guard Assistance,1 Person Assistance Equipment Transfer Assistive Device Gait Belt,Front Wheeled Walker Orthotic/Prosthetic Devices or Brace: No Transfers Transfer Destination Bed,Chair Transfer Technique ambulation using FWW Transfer Ability Level of Assist Contact Guard Assistance,1 Person Assistance,Use of Upper Extremities Comments Mobility Comments pt supine in bed and daughter in room. conducted caregiver training. BP monitored. BP prior to getting up: 109/42. pt completed supine to sit with HOB elevated SBA and cues for techniques. educated daughter on how to assist pt and how to use safety belt. reviewed hip precautions with pt and educated daughter. pt with c/o slight dizziness in sitting. BP: 117/48. daughter was able to put belt on. pt completed sit<>stand x 3 reps with daughter assisting and cueing pt. pt ambulated in room using FWW ~ 30 ft. pt sat back on chair. BP checked: 102/71. pt agreed to do stair climbing. BP after restin/47. pt ambulated towards the stairs with daughter assisting and completed ~ 100 ft using FWW CGA. PT demonstrated and educated pt on how to do stairs. educated daughter on how to assist pt. pt completed up/ down steps holding on with B hands on L rail and completed min A with daughter assisting. pt and daughter completed safely. pt assisted back to her room. completed ambulation towards the toilet with daughter assisting and was also able to assist pt with brief management. pt ambulated towards the sink using FWW CGA and was able to maintain standing CGA while completing handwashing. pt ambulated to the bed and completed sit to supine mod A with LE elevation. positioned pt in bed. call light and table placed within reach. daughter was able to assist and cue pt with mobility. BP at end of tx session: 112/55 Gait Assessment Gait Gait Assistance Required: Contact Guard Assist Distance (Feet) 100 Assistive Devices Assistive Device Gait Belt,Front Wheeled Walker Gait Deviations General Gait Pattern Antalgic,Decreased Stride Length,Decreased Feet Clearance,Step-to Gait Factors Limiting Gait Function Factors Limiting Gait Function Decreased Activity Tolerance, Decreased Sensation,Decreased Strength,Difficulty Following Directions,Limited Range of Motion,Pain,Poor Balance,Poor Safety Awareness Stair Climbing Assessment Evaluation Level of Assist On Stairs Minimal Assistance Devices Stair Climbing Assistive Devices Left Railing Technique/Endurance Stair Climbing Direction Ascend and Descend Stair Climbing Technique Step to Step Number of Steps Climbed 3 Stair Climbing Set # Repetitions (reps) 1 Comments Stair Climbing Comments pls refer to mobility section for details. daughter was able to assist pt safely M5 PT-IP Objective Assessments Start: 09/29/19 12:26 Freq: NEEDED Status: Active Protocol: Document 09/29/19 08:58 AB (Rec: 09/29/19 12:46 AB [id number]) Orientation Orientation/Cognition Level of Alertness Alert Orientation Name,Age,Place,Situation Language Function Ability No Deficits Noted Safety Awareness Decreased Safety Awareness Memory Description Short Term Impaired Gross Range of Motion Lower Extremity ROM Assessment Within Functional Limits Strength Lower Extremity Strength Assessment Left Impaired Hip 3+/5 Knee 4-/5 Coordination Assessment Gross Coordination Gross Coordination WNL Sensation Assessment Sensation Gross Sensation WNL Muscle Tone Muscle Tone WNL Yes M6 PT-IP Treatment Start: 09/29/19 12:26 Freq: NEEDED Status: Active Protocol: Document 09/29/19 13:20 AB (Rec: 09/29/19 16:18 AB [id number]) Physical Therapy Treatment Education Education Provided Precautions,Weight Bearing Status,Safety M7 PT-IP Assessment and Plan Start: 09/29/19 12:26 Freq: NEEDED Status: Active Protocol: Document 09/29/19 13:20 AB (Rec: 09/29/19 16:18 AB [id number]) PT Summary Assessment and Plan Potential Rehabilitation Potential Good Summary Impairments Pain,ROM,Strength,Balance, Coordination,Sensation, Cognition,Bed Mobility, Transfers,Gait,Activity Tolerance Progress Towards Goals Slow Progress due to Pain,Slow Progress due to Medical Issues Assessment Summary caregiver training conducted and daughter was able to assist pt safety with mobility . pt plans to go home with spouse and daughter to assist her. Goals Bed Mobility Goal Independent Transfer Goal Independent,Front Wheeled Walker Gait Goal Independent,Front Wheel Walker Gait Distance 150 Other Goals up/down 3 steps 1 rail SBA Days to Meet Goals 5 Frequency of Treatment Frequency Of Treatment Twice a Day Treatment Plan Physical Therapy Treatment Plan Bed Mobility Training,Transfer Training,Gait Training, Therapeutic Exercise,Balance Retraining,Post Op Education, Discharge Planning,Hot or Cold Pack,Neuromuscular Re-ed, Coordination Retraining,Manual Therapy Other Recommendations and Next Treatment ambulation, caregiver training Focus and stair climbing when appropriate Recommendations To Nursing Amount of Assist Needed 1 Person Assist Discharge Recommendations PT Discharge Recommendations Home with Assistance, Outpatient PT Transportation Needs at Discharge Private Vehicle
--- NOTE | 2019-09-29 14:34 | PM.DS.1 ---
History of Present Illness History of Present Illness Date Patient Seen: 09/29/19 Time Patient Seen: 07:35 Chief complaint: Left Total Hip Arthroplasty *OPB* Narrative: 69-year-old female with severe left hip DJD. Pain with activities and at rest, limited ambulation activity tolerance, difficulties with ADLs, and failure of conservative treatment. Discussed nature of condition, treatment options risks and benefits. Patient elected proceed with total hip arthroplasty and gives informed consent. Discharge Providers Provider Date of admission: 09/28/19 06:16 Discharge Date: 09/30/19 Primary care physician: Demond Carlson MD Consults: 09/28/19 11:38 Consult to Discharge Planning Routine Comment: Consult to Physical Therapy Evaluate & Treat Comment: Physician Instructions: post op INOCENCIA protocol Consult to Respiratory Therapy Evaluate & Treat Comment: Physician Instructions: Evaluate and treat Discharge provider: Jose Enrique Calero PA-C Summary Hospital Course Discharge Diagnosis: Left hip degenerative joint disease Hypotension which responded well to fluid bolus. Hospital Course: Left total hip arthroplasty (CPT code 65701 with print shop assistant) Same procedure as scheduled: Yes Indications: 69-year-old female with severe left hip DJD. Pain with activities and at rest, limited ambulation activity tolerance, difficulties with ADLs, and failure of conservative treatment. Discussed nature of condition, treatment options risks and benefits. Patient elected proceed with total hip arthroplasty and gives informed consent. Surgeon: Ranjit Adkins Licensed Mortgage Loan Officer: Jose Enrique Calero Anesthesia Type: General and Spinal Operative Notes Closure Type: primary Specimen(s): none sent Prosthetic devices, grafts, tissues, transplants, or devices: Acetabulum: [employer] R3 acetabular component size 48 mm Femoral component: [employer] Anthology stem size 6 with high offset Femoral head: 32 mm + 4 Oxin Estimated blood loss 100 mL Patient admitted to the hospital for left total hip arthroplasty. Patient consented to the same. Patient taken to the OR underwent left total hip arthroplasty. Patient is back in her room recovering well as in stable condition. Patient was hypotensive yesterday and was a little dizzy with physical therapy. Patient was given a bolus of fluid and encouraged good hydration. Patient's blood pressure continued to normalize. Patient asymptomatic this morning. is home in available to assist her. Patient wishes to go home today. Patient will be discharged home today in stable condition. Exam Vital Signs (past 8 hours): - 09/29/19 08:00 Temperature 97.0 F L Pulse Rate 82 Respiratory Rate 16 Blood Pressure 100/49 L Pulse Oximetry 100 Oxygen Delivery Method Room Air Oxygen Flow Rate 0 Narrative Exam Narrative: 69-year-old female resting comfortably in bedside chair in no apparent distress. Left hip dressing is clean, dry and intact. Both legs are warm and dry. Motor function intact to the bilateral lower extremities. Sensation grossly intact to light touch the bilateral lower extremities. Objective Labs Result Diagrams: 09/29/19 05:09 Labs: Laboratory Results - last 24 hr 09/29/19 05:09 Hgb 10.1 L Hct 29.6 L Discharge Assessment & Plan Assessment and Plan Assessment: Patient progressing as expected. Discharge home today in stable condition. Discharge Plan Discharge Plan Patient Disposition: Home Discharge orders & Medications Prescriptions: New acetaminophen 325 mg Tablet 650 mg PO TID Qty: 60 RF: 0 aspirin 81 mg Tablet,Delayed Release (Dr/Ec) 81 mg PO BID Qty: 60 RF: 0 Continued levothyroxine [Synthroid] 25 MCG tablet 25 mcg PO QDAY Qty: 0 RF: 0 alprazolam 0.25 MG tablet 0.25 mg PO BEDTIME Qty: 0 RF: 0 diazepam [Valium] 2 MG tablet 2.5 mg PO DAILY PRN (Reason: Muscle spasm, vertigo) Qty: 0 RF: 0 meclizine 25 MG tablet 12.5 mg PO DAILY PRN (Reason: Vertigo) Qty: 0 RF: 0 estradiol [Estrace] 0.01 % cream 1 gm Vaginal 2XW Qty: 0 RF: 0 pantoprazole [Protonix] 40 MG tablet,delayed release (DR/EC) 40 mg PO QDAY Qty: 20 RF: 0 diphenhydramine HCl [Benadryl] 25 mg Capsule 12.5 mg PO DAILY PRN (Reason: Seasonal allergies, sleep) RF: 0 metformin 500 mg/5 mL Solution 1,000 mg PO DAILY RF: 0 alprazolam 0.25 mg tablet 0.125 mg PO Q6H RF: 0 metoprolol succinate 50 mg capsule,sprinkle,ER 24hr 50 mg PO DAILY RF: 0 cholecalciferol (vitamin D3) 5,000 unit capsule 2,000 unit PO DAILY RF: 0 Discontinued hydrocodone-acetaminophen 5-325 mg Tablet 0.5 tab PO Q4-6H PRN (Reason: Pain) RF: 0 acetaminophen [Tylenol] 325 mg capsule 500 mg PO BID RF: 0 Follow up/Referrals: Ranjit Adkins MD [Physician] - (2 wks) Demond Carlson MD [Primary Care Provider] - Discharge Health Status Multidrug resistant organism: No MDRO Diet/Activity/Treatments Diet: Diet as Tolerated and Carb-consistent/Diabetic Activity: Weight-bearing as tolerated, posterior hip precaution Cold/Heat Therapy: Apply ice to the affected area as needed Other treatments: Aspirin b.i.d., acetaminophen as prescribed. Patient has been given prescription of oxycodone and will take as needed for pain Skin/Wound/Dressing Care Report to your healthcare provider any signs of infection, such as:: chills, fever, increased pain, unusual drainage and unusual redness Dressing: Keep clean and dry Visit Report/Discharge Packet Instructions: DI for Hip Replacement, DI for Prescription Opioid Use Discharge Data Primary Care Provider: Demond Carlson Quality VTE Deep Vein Thrombosis/Pulmonary Embolism Present on Admission: No
[2019-09-30] MEDS: OXYCODONE IR 5 MG TABLET PO ×3 (00:05→09:01)
[2019-09-30] MEDS: ALPRAZolam 0.25 MG TABLET 0.125 MG PO ×2 (00:08→05:54)
--- NOTE | 2019-09-30 03:57 | PC.NURSE ---
0016 Patient is alert and oriented. Breath sounds CTA with RA sat of 98%. HRR. Denies nausea. BT present and is passing flatus. Voiding without dysuria, frequency or urgency. Is able to turn herself in bed. Needing walker and 1 assist when out of bed. Bulky dressing to left hip is CDI. CMS intact bilaterally but still having difficulty lifting left leg off bed Bilateral calf SCD's applied. Complains of 6/10 pain so medicated with Oxycodone. Fall risk score is high and bed alarm is activated.
[2019-09-30] MEDS: PANTOPRAZOLE 40 MG TABLET PO (05:54)
[2019-09-30] MEDS: LEVOTHYROXINE 25 MCG TABLET PO (05:54)
[2019-09-30 05:59] VITALS: BP 118/78; PULSE 103; RESP 16; TEMP 36.1; O2SAT 99
[2019-09-30 07:51] VITALS: BP 116/73; PULSE 91; RESP 16; TEMP 36.6; O2SAT 99
[2019-09-30] MEDS: METFORMIN 1 EACH TOP (09:00)
[2019-09-30] MEDS: CHOLECALCIFEROL (VITAMIN D3) 1,000 UNIT TABLET 2000 UNIT PO (09:01)
[2019-09-30] MEDS: ACETAMINOPHEN 325 MG TABLET 650 MG PO (09:01)
[2019-09-30] MEDS: DOCUSATE 100 MG CAPSULE PO (09:01)
[2019-09-30] MEDS: ASPIRIN EC 81 MG TABLET PO (09:01)
--- NOTE | 2019-09-30 09:34 | PC.NURSE ---
Patient is doing well this morning. Dressing to left hip changed. Given 1 oxycodone for ride home to [employer]. Patient cms wnl to l.hip. in room and they will be discharged around 1000am
--- NOTE | 2019-09-30 09:59 | CM.DPC ---
DCP: continued: case discussed in Team Rounds with ENTRY LEVEL MARKETING ASSISTANT noting that pt did well and was leaving this morning. Ortho MARY Calero saw pt and has written d/c order. Went to room now to check in with pt. She was in process of having dressing changed by CAROLE Donohue, her spouse was at bedside. They are leaving now to catch the ferry to [place].
== END 2019-09-30 10:00 | disposition home or self-care (01) | DRG 470 ==
LOC: OR 11:01 → AC 09-29 14:05
PROVIDERS: Admitting Provider Orthopaedic Surgery; PCP Family Medicine; Referring Provider Orthopaedic Surgery; Visit Provider Orthopaedic Surgery
PROC: 0SRB0JZ Replacement of Left Hip Joint with Synthetic Substitute, Open Approach (ICD-10-PCS; CPT 27130; principal; 2019-09-28 07:45)
DX: M16.12 Unilateral primary osteoarthritis, left hip (principal); I10 Essential (primary) hypertension; E11.9 Type 2 diabetes mellitus without complications; F41.9 Anxiety disorder, unspecified; E03.9 Hypothyroidism, unspecified; I95.9 Hypotension, unspecified; Z79.84 Long term (current) use of oral hypoglycemic drugs
CPT/HCPCS: 36415; 72170; 82962; 85014; 85018; 97162; 97530; C1776; J0690; J1100; J1885; J2060; J2250; J2270; J2405; J2704; J3010

== ENCOUNTER → 2020-03-26 10:42 | Outpatient (CLI) | payer MEDICARE, OTHER, SELFPAY ==
[2019-09-28 11:54] VITALS: BMI 22.3
--- NOTE | 2020-03-26 | DI.MG.S_ITS ---
BILATERAL DIGITAL SCREENING MAMMOGRAM 3D/2D WITH CAD: 03/26/2020 CLINICAL: Routine screening. Family history of breast cancer. Comparison is made to exams dated: 03/09/2019 mammogram, 02/26/2018 mammogram - [facility], and 02/10/2017 mammogram - [facility]. There are scattered fibroglandular elements in both breasts. Current study was also evaluated with a Computer Aided Detection (CAD) system. There are benign calcifications in both breasts. No significant masses, calcifications, or other findings are seen in either breast. There has been no significant interval change. IMPRESSION: BENIGN There is no mammographic evidence of malignancy. A 1 year screening mammogram is recommended. This exam was interpreted at Station ID: [id number]. NOTE: For mammograms, a report in lay terms will be sent to the patient. Approximately 15% of breast malignancies will not be visualized mammographically. In the management of a palpable breast mass, a negative mammogram must not discourage biopsy of a clinically suspicious lesion. Electronically Signed By: Tereso mchugh/joaquin:03/26/2020 14:02:54 letter sent: Normal Exam ACR BI-RADS Category 2: Benign Finding(s) 3342F
== END ==
PROVIDERS: PCP Family Medicine; Referring Provider Family Medicine; Visit Provider Family Medicine
DX: Z12.31 Encounter for screening mammogram for malignant neoplasm of breast (principal); Z80.3 Family history of malignant neoplasm of breast
CPT/HCPCS: 77063; 77067

== ENCOUNTER → 2021-04-01 12:28 | Outpatient (CLI) | payer MEDICARE, OTHER, SELFPAY ==
[2019-09-28 11:54] VITALS: BMI 22.3
--- NOTE | 2021-04-01 | DI.MG.S_ITS ---
BILATERAL DIGITAL SCREENING MAMMOGRAM 3D/2D WITH CAD: 04/01/2021 CLINICAL: Routine screening. Family history of breast cancer. Comparison is made to exams dated: 03/09/2019 mammogram, 02/26/2018 mammogram, and 03/26/2020 mammogram - [facility]. There are scattered fibroglandular elements in both breasts. Current study was also evaluated with a Computer Aided Detection (CAD) system. There are benign calcifications in both breasts. No significant masses, calcifications, or other findings are seen in either breast. There has been no significant interval change. IMPRESSION: BENIGN There is no mammographic evidence of malignancy. A 1 year screening mammogram is recommended. This exam was interpreted at Station ID: [id number]. NOTE: For mammograms, a report in lay terms will be sent to the patient. Approximately 15% of breast malignancies will not be visualized mammographically. In the management of a palpable breast mass, a negative mammogram must not discourage biopsy of a clinically suspicious lesion. Electronically Signed By: Beto constantino/joaquin:04/01/2021 13:05:54 letter sent: Normal Exam ACR BI-RADS Category 2: Benign Finding(s) 3342F
[2021-04-01 14:29] LABS: Add Manual Diff / Slide Review NO; Basophils Absolute Auto 0 /uL (0-100); Basophils Percent Auto 0.3 % (0-2); Eosinophils Absolute Auto 0 /uL (0-450); Eosinophils Percent Auto 1.1 % (2-4); Hematocrit 37.6 % (36-46); Hemoglobin 12.6 g/dL (12.0-16.0); Lymphocytes Absolute Auto 700 /uL (1100-4500); Lymphocytes Percent Auto 22.6 % (25-40); Mean Corpuscular HGB Conc 33.6 % (30-36); Mean Corpuscular Hemoglobin 33.4 PG (26-34); Mean Corpuscular Volume 99.5 fL (80-100); Monocytes Absolute Auto 400 /uL (0-900); Monocytes Percent Auto 14.8 % (3-14); Neutrophils Absolute Auto 1900 /uL (1500-7000); Neutrophils Percent Auto 61.2 % (50-75); Platelet Count 95 X10^3/uL (150-400); Red Blood Cell Count 3.78 X10^6/uL (4.0-5.2); Red Cell Distribution Width 17.6 % (11.6-14.8)
[2021-04-01 14:48] LABS: Alanine Aminotransferase 35 IU/L (<35); Albumin 4.6 g/dL (3.5-5.0); Albumin Globulin Ratio 1.4 (1.0-2.8); Alkaline Phosphatase 81 U/L (38-126); Aspartate Aminotransferase 30 IU/L (14-36); BUN Creatinine Ratio 26.8 (6-22); Bilirubin Total 0.3 mg/dL (0.2-1.3); Blood Urea Nitrogen 15 mg/dL (7-17); Calcium 9.7 mg/dL (8.4-10.2); Carbon Dioxide 29 mmol/L (22-32); Chloride 99 mmol/L (98-107); Estimated Glomerular Filt Rate > 60.0 mL/min (>60); Globulin 3.3 g/dL (1.7-4.1); Glucose 87 mg/dL (80-110); HEMOLYSIS < 15 (0-50); Sodium 135 mmol/L (137-145); Total Protein 7.9 g/dL (6.3-8.2)
== END ==
PROVIDERS: PCP Family Medicine; Referring Provider Family Medicine; Visit Provider Family Medicine
DX: Z12.31 Encounter for screening mammogram for malignant neoplasm of breast (principal); D43.2 Neoplasm of uncertain behavior of brain, unspecified; G93.89 Other specified disorders of brain; Z80.3 Family history of malignant neoplasm of breast
CPT/HCPCS: 36415; 77063; 77067; 80053; 85025

== ENCOUNTER → 2022-06-18 13:45 | Outpatient (CLI) | payer MEDICARE, OTHER, SELFPAY ==
[2019-09-28 11:54] VITALS: BMI 22.3
--- NOTE | 2022-06-18 | DI.MG.S_ITS ---
BILATERAL DIGITAL SCREENING MAMMOGRAM 3D/2D WITH CAD: 06/18/2022 CLINICAL: Routine screening. Family history of breast cancer. Comparison is made to exams dated: 04/01/2021 mammogram, 03/26/2020 mammogram, 03/09/2019 mammogram, 02/26/2018 mammogram - [facility], and 02/10/2017 mammogram - [facility]. There are scattered areas of fibroglandular density in both breasts (category b / 25%-50% glandular tissue). Current study was also evaluated with a Computer Aided Detection (CAD) system. There are benign calcifications in both breasts. No significant masses, calcifications, or other findings are seen in either breast. There has been no significant interval change. IMPRESSION: BENIGN There is no mammographic evidence of malignancy. A 1 year screening mammogram is recommended. Based on the Tyrer Cuzick model (a risk assessment model) the patient's lifetime risk is 4.4% and her 10 year risk is 2.8%. According to the ACR, ACS, and NCCN guidelines, an annual breast MRI exam along with mammogram is recommended if the patient's lifetime risk is 20% or greater. This exam was interpreted at Station ID: [id number]. NOTE: For mammograms, a report in lay terms will be sent to the patient. Approximately 15% of breast malignancies will not be visualized mammographically. In the management of a palpable breast mass, a negative mammogram must not discourage biopsy of a clinically suspicious lesion. Electronically Signed By: Goran jain/joaquin:06/18/2022 16:39:58 letter sent: Normal Exam ACR BI-RADS Category 2: Benign Finding(s) 3342F
== END ==
PROVIDERS: PCP Family Medicine; Referring Provider Family Medicine; Visit Provider Family Medicine
DX: Z12.31 Encounter for screening mammogram for malignant neoplasm of breast (principal); Z80.3 Family history of malignant neoplasm of breast
CPT/HCPCS: 77063; 77067

== ENCOUNTER → 2022-08-12 13:15 | Outpatient (CLI) | payer MEDICARE, OTHER, SELFPAY ==
[2019-09-28 11:54] VITALS: BMI 22.3
--- NOTE | 2022-08-12 | DI.MRI.S_ITS ---
PROCEDURE: MR LUMBAR SPINE WO CON INDICATIONS: lumbar stenosis TECHNIQUE: Noncontrast sagittal T1 spin echo and T2 fast echo, sagittal STIR, and T2 fast spin echo through the lumbar spine. In cases with scoliosis, additional coronal T2 fast spin echo may be performed. COMPARISON: [facility], MR, MR LUMBAR SPINE WO CON, 04/27/2019, 12:39. FINDINGS: Image quality: Excellent. Alignment and Curvature: Unchanged 3 mm grade 1 anterolisthesis of L4 on L5. Trace retrolisthesis at L3-4 is unchanged. Bone Marrow: Marrow is of normal overall signal. No acute vertebral body compression fractures. Suspected subtle left sacral insufficiency fracture seen at the extreme margins of the field of view of this exam. Spinal Cord: Conus medullaris terminates at the L1-2 level. Visualized cord demonstrates normal signal and size. Paraspinous Soft Tissues: No paravertebral masses. Grade 2-3 fatty infiltration of the paraspinous musculature. T12-L1: No significant spinal canal stenosis or neural foraminal narrowing. L1-L2: No significant spinal canal stenosis or neural foraminal narrowing. L2-L3: No significant spinal canal stenosis or neural foraminal narrowing. L3-L4: Disc desiccation and mild circumferential disc bulging as well as mild bilateral facet hypertrophy and buckling of the ligamentum flavum. Findings result in hsqq-pm-wcrjwriy narrowing of the spinal canal and mild narrowing of the bilateral neural foramina, minimally progressed when compared to the MRI from 04/27/2019. L4-L5: Grade 1 anterolisthesis of L4 on L5 with superimposed circumferential disc bulging that is eccentric towards the right lateral recess as well as severe bilateral facet hypertrophy and buckling of the ligamentum flavum. Findings result in severe narrowing of the spinal canal, effacement of the lateral recesses, and kycf-oj-pdotmzxw bilateral neural foraminal narrowing. Findings have progressed when compared to the MRI from 04/27/2019. L5-S1: Disc desiccation and mild circumferential disc bulging with moderate bilateral facet hypertrophy. Findings do not result in significant spinal canal stenosis or neural foraminal narrowing. IMPRESSION: 1. Suspected left sacral insufficiency fracture, partially included at the margins of the field of view of this exam. Consider sacral MRI for confirmation if indicated clinically. 2. At L4-5, grade 1 anterolisthesis and superimposed degenerative changes result in severe spinal canal narrowing, which has progressed when compared to the MRI from 04/27/2019. 3. Additional progressive qlbq-jy-hbzjgdfa multilevel degenerative disc disease and facet hypertrophy as described in detail in the body of the report. Approved by: Beto Alvarez M.D. on 08/12/2022 at 15:26
== END ==
PROVIDERS: PCP Family Medicine; Referring Provider Orthopaedic Surgery; Visit Provider Orthopaedic Surgery
DX: M43.16 Spondylolisthesis, lumbar region (principal); M47.816 Spondylosis without myelopathy or radiculopathy, lumbar region; M47.817 Spondylosis without myelopathy or radiculopathy, lumbosacral region; M51.36 Other intervertebral disc degeneration, lumbar region; M51.37 Other intervertebral disc degeneration, lumbosacral region; M48.061 Spinal stenosis, lumbar region without neurogenic claudication; Z96.642 Presence of left artificial hip joint
CPT/HCPCS: 72148

== ENCOUNTER → 2022-09-30 13:04 | Outpatient (CLI) | payer MEDICARE, OTHER, SELFPAY ==
[2019-09-28 11:54] VITALS: BMI 22.3
--- NOTE | 2022-09-30 | DI.RAD.S_ITS ---
Bone Density Report Name: GAYLE BACA Age: 72 Sex: Female Ethnicity: White Date of : 1950 Indication: postmenopausal; screening for osteoporosis; history of glucocorticoids; prior fracture; Referring Provider: ADRIANNA BAUM Study: Bone densitometry was performed. Exam Date: September 30, 2022 Accession number: [id number] Bone Density: Region BMD T-score Z-score Classification AP Spine(L1-L4) 0.977 -0.6 1.5 Normal Femoral Neck (Right) 0.744 -0.9 0.9 Normal Total Hip (Right) 0.803 -1.1 0.4 Osteopenia Total Forearm (Left) 0.538 -0.8 1.3 Normal 1/3 Forearm (Left) 0.620 -1.2 0.9 Osteopenia UD Forearm (Left) 0.433 -0.2 1.4 Normal World Health Organization criteria for BMD impression classify patients as: Normal (T-score at or above -1.0), Osteopenia (T-score between -1.0 and -2.5), or Osteoporosis (T-score at or below -2.5). 10-year Fracture Risk(1): Major Osteoporotic Fracture 22% Hip Fracture 2.7% Reported Risk Factors: [place] (), Neck BMD=0.744, BMI=27.1, previous fracture, glucocorticoids (1) FRAX(R) Version 3.08. Fracture probability calculated for an untreated patient. Fracture probability may be lower if the patient has received treatment. Impression: The patient has low bone mass, based on the Right Total Hip T-score. The patient has an estimated ten-year risk of hip fracture of 2.7% and an estimated ten-year risk of major fracture of 22%, based on the WHO FRAX algorithm. The patient has risk factors, including: previous fracture, history of glucocorticoid therapy. Discussion: BONE DENSITY IS LOW AT ONE OR MORE SKELETAL SITES. THE PATIENT'S BMD AND CLINICAL RISK FACTORS CONTRIBUTE TO THIS PATIENT'S INCREASED RISK OF FRACTURE. This patient's lowest T-score is low at one or more skeletal sites. It meets the World Health Organization's (WHO) criteria for low bone mass (T-score between -1.0 and -2.5). The patient's 10-year risk of a major osteoporotic fracture as calculated by FRAX exceeds the threshold where pharmacological therapy is recommended by the National Osteoporosis Foundation (NOF). However, all treatment decisions require clinical judgment and consideration of individual patient factors, including patient preferences, comorbidities, previous drug use, risk factors not captured in the FRAX model (e.g., frailty, falls, vitamin D deficiency, increased bone turnover, interval significant decline in bone density) and possible under or overestimation of fracture risk by FRAX. The patient should follow a healthful lifestyle (good nutrition with adequate calcium and vitamin D, and appropriate weight-bearing exercise). Follow-Up: Consider a repeat BMD and Vertebral Fracture Assessment (VFA) exam in 2 years or sooner if medically necessary, to reassess this patient's status. Reported by: BRANDIE APONTE M.D. on 09/30/2022 1:41:00 PM.
--- NOTE | 2022-09-30 | DI.MRI.S_ITS ---
PROCEDURE: MR PELVIS WO CON INDICATIONS: dorsopathies, sacral TECHNIQUE: Noncontrast coronal and axial T1 spin echo and STIR through the bony pelvis. COMPARISON: [facility], MR, MR LUMBAR SPINE WO CON, 08/12/2022, 13:20. FINDINGS: Image quality: Good Bones: Partially seen lumbosacral degenerative changes. Persistent edema is seen in bilaterally in the sacrum, with suspected small fracture lines extending to the sacral al a. The sacroiliac joints appear maintained, other than degenerative changes. Partially seen metallic artifact. Soft tissues: Colonic diverticula. No presacral soft tissue mass. IMPRESSION: Persistent bilateral edema of the sacrum, imaging appearance compatible with insufficiency fracture. Superimposed degenerative changes. Dictated by: Josh Duke M.D. on 09/30/2022 at 15:16 Approved by: Josh Duke M.D. on 09/30/2022 at 15:19
== END ==
PROVIDERS: PCP Family Medicine; Referring Provider Neurological Surgery; Visit Provider Neurological Surgery
DX: M85.851 Other specified disorders of bone density and structure, right thigh (principal); M53.88 Other specified dorsopathies, sacral and sacrococcygeal region; M47.817 Spondylosis without myelopathy or radiculopathy, lumbosacral region; Z13.820 Encounter for screening for osteoporosis; Z78.0 Asymptomatic menopausal state
CPT/HCPCS: 72195; 77080; 77081

== ENCOUNTER → 2023-06-22 11:03 | Outpatient (CLI) | payer MEDICARE, OTHER, SELFPAY ==
[2019-09-28 11:54] VITALS: BMI 22.3
--- NOTE | 2023-06-22 11:06 | DI.MG.S_ITS ---
BILATERAL DIGITAL SCREENING MAMMOGRAM 3D/2D WITH CAD: 06/22/2023 CLINICAL: Routine screening. Family history of breast cancer. Comparison is made to exams dated: 06/18/2022 mammogram, 04/01/2021 mammogram, and 03/26/2020 mammogram - [facility]. There are scattered areas of fibroglandular density in both breasts (category b / 25%-50% glandular tissue). Current study was also evaluated with a Computer Aided Detection (CAD) system. There are benign calcifications in both breasts. No significant masses, calcifications, or other findings are seen in either breast. There has been no significant interval change. IMPRESSION: BENIGN There is no mammographic evidence of malignancy. A 1 year screening mammogram is recommended. Based on the Tyrer Cuzick model (a risk assessment model) the patient's lifetime risk is 4.2% and her 10 year risk is 2.9%. According to the ACR, ACS, and NCCN guidelines, an annual breast MRI exam along with mammogram is recommended if the patient's lifetime risk is 20% or greater. This exam was interpreted at Station ID: [id number]. NOTE: For mammograms, a report in lay terms will be sent to the patient. Approximately 15% of breast malignancies will not be visualized mammographically. In the management of a palpable breast mass, a negative mammogram must not discourage biopsy of a clinically suspicious lesion. Electronically Signed By: Christine vigil/joaquin:06/22/2023 15:05:21 letter sent: Normal Exam ACR BI-RADS Category 2: Benign Finding(s) 3342F
== END ==
LOC: MAMMO 11:04
PROVIDERS: PCP Family Medicine; Referring Provider Family Medicine; Visit Provider Family Medicine
DX: Z12.31 Encounter for screening mammogram for malignant neoplasm of breast (principal); Z80.3 Family history of malignant neoplasm of breast; R92.323 Mammographic fibroglandular density, bilateral breasts
CPT/HCPCS: 77063; 77067

== ENCOUNTER → 2023-08-07 14:21 | Outpatient (CLI) | payer MEDICARE, OTHER, SELFPAY ==
[2019-09-28 11:54] VITALS: BMI 22.3
[2023-08-12 12:10] LABS: Alkaline Phosphatase, Bone Spe 14.5 ug/L (.)
[2023-08-14 13:36] LABS: C-Telopeptide, Serum 170 pg/mL (.)
== END ==
LOC: LAB 14:23
PROVIDERS: PCP Family Medicine; Referring Provider Family Medicine; Visit Provider Family Medicine
DX: M81.0 Age-related osteoporosis without current pathological fracture (principal); R79.0 Abnormal level of blood mineral; S32.82XS Multiple fractures of pelvis without disruption of pelvic ring, sequela; E11.9 Type 2 diabetes mellitus without complications
CPT/HCPCS: 36415; 82523; 84080

== ENCOUNTER → 2023-10-06 11:34 | Outpatient (CLI) | payer MEDICARE, OTHER, SELFPAY ==
[2019-09-28 11:54] VITALS: BMI 22.3
--- NOTE | 2023-10-06 11:38 | DI.RAD.S_ITS ---
PROCEDURE: XR THORACIC SPINE 3V INDICATIONS: post menapausal osteoporosis TECHNIQUE: 3 views of the thoracic spine were acquired. COMPARISON: [facility] ([place]), CR, XR THORACIC SPINE 3V, 07/29/2023, 14:10. FINDINGS: Bones: No fractures or dislocations. No suspicious bony lesions. 12 pairs of ribs are noted, and appear intact where visualized. Mild multilevel degenerative changes with osteophytosis and disc height loss. Diffuse osseous demineralization. Soft tissues: No paravertebral stripe thickening. Cholecystectomy clips. IMPRESSION: 1. No acute bony abnormality. Of note, osseous demineralization limits sensitivity for subtle nondisplaced fracture. If pain persists, consider MRI for further evaluation. 2. Mild multilevel degenerative changes of the spine, similar to prior dated July 29, 2023. Dictated by: Orestes Dunne M.D. on 10/06/2023 at 14:47 Approved by: Orestes Dunne M.D. on 10/06/2023 at 14:48
--- NOTE | 2023-10-06 11:38 | DI.RAD.S_ITS ---
PROCEDURE: XR HIP W PEL IF DONE DEJA MIN 4V INDICATIONS: OSTEOPOROSIS TECHNIQUE: AP pelvis with lateral view(s) of the bilateral hip(s). COMPARISON: [facility] ([place]), CR, XR HIP W PEL IF DONE RT 2V, 05/20/2022, 15:40. FINDINGS: Bones: No fractures or dislocations. Moderate to severe right femoroacetabular joint space narrowing and juxta-articular osteophytosis, similar to prior. Left hip total arthroplasty hardware is intact with no perihardware lucency to suggest hardware loosening. Anatomic alignment. Pelvic ring appears intact. No suspicious bony lesions. Partially visualized L4-5 hardware. Soft tissues: The visualized bowel gas pattern is normal. No suspicious soft tissue calcifications. Vascular calcifications. IMPRESSION: 1. Moderate to severe right hip osteoarthritis, similar to prior dated May 20, 2022. 2. Left total hip arthroplasty hardware is intact, without complication. Dictated by: Orestes Dunne M.D. on 10/06/2023 at 14:40 Approved by: Orestes Dunne M.D. on 10/06/2023 at 14:42
--- NOTE | 2023-10-06 11:38 | DI.RAD.S_ITS ---
PROCEDURE: XR LUMBAR SPINE 2-3V INDICATIONS: POST MENAPAUSAL OSTEOPOROSIS TECHNIQUE: 3 views of the lumbar spine were acquired. COMPARISON: [facility], CR, XR THORACIC SPINE 3V, 10/06/2023, 12:10. [facility], CR, XR LUMBAR SPINE MIN 4V, 04/20/2019, 15:11. FINDINGS: Bones: 5 ibu-wls-vwgxxaz vertebrae are present. Retrolisthesis of L2 on L3 and L3 on L4 of approximately 3-4 mm. Grade 1 anterolisthesis of L4 on L5 of approximately 6 mm. Hardware in the posterior elements of L4 and L5 is intact. Mild dextroconvex curvature of the lumbar spine centered at L3. No vertebral body compression fractures. No suspicious bony lesions. Diffuse osseous demineralization. Mild to moderate multilevel degenerative changes with osteophytosis, disc height loss and facet/uncal arthropathy, notably at L3-L4 and L4-L5. Soft tissues: Overlying bowel gas pattern is normal. No suspicious soft tissue calcifications. Cholecystectomy clips. IMPRESSION: 1. No acute bony abnormality. If clinical symptoms persist, consider cross-sectional imaging for further evaluation. 2. Hardware in the posterior elements of L4 and L5 is intact. 3. Cpbm-aw-ncdqxmvr multilevel degenerative changes of the lumbar spine, mildly increased compared to prior dated April 20, 2019. Dictated by: Orestes Dunne M.D. on 10/06/2023 at 14:43 Approved by: Orestes Dunne M.D. on 10/06/2023 at 14:47
--- NOTE | 2023-10-06 11:38 | DI.RAD.S_ITS ---
PROCEDURE: XR DEXA AXIAL SKELETON INDICATIONS: Postmenopausal osteoporosis COMPARISON: [facility], CR, XR DEXA AXIAL SKELETON, 09/30/2022, 13:29. FINDINGS: Lumbar Spine: Bone mineral density 0.94 g/cm2, T score -0.7, previously -0.6. This uses L1-L3 on today's study Right Hip: Bone mineral density 0.80 g/cm2, T score -1.2, previously -1.1. Right Femoral Neck: Bone mineral density 0.76 g/cm2, T score -0.8, previously -0.9. Left Forearm: Bone mineral density 0.62 g/cm2, T score -1.2, previously -1.2. Fracture Risk Calculation (when applicable): 10-year fracture risk of a major osteoporotic fracture 20% and of a hip fracture 2.4%. (T score greater or equal to -1.0 to: NORMAL) (T score from -1.1 to -2.4: OSTEOPENIA) (T score less than or equal to -2.5: OSTEOPOROSIS) IMPRESSION: Osteopenia. T-scores are similar to prior. Follow-up guidelines as follows: Osteoporosis: Consider a repeat DEXA and Vertebral Fracture Assessment (VFA) exam in 2 years or sooner if medically necessary, to reassess this patient's status. Osteopenia: Consider a repeat DEXA in 2-3 years to reassess this patient's status, or if there is a new clinical indication. Normal: Consider a repeat DEXA in 5 years or sooner, or if there is a new clinical indication. All treatment decisions require clinical judgment and consideration of individual patient factors, including patient preferences, comorbidities, previous drug use, risk factors not captured in the FRAX model (e.g., frailty, falls, vitamin D deficiency, increased bone turnover, interval significant decline in bone density ) and possible under- or over-estimation of fracture risk by FRAX. In addition, the NOF Guide recommends that FDA-approved medical therapies be considered in postmenopausal women and men age >= 50 years with a: * Hip or vertebral (clinical or morphometric) fracture * T-score of <=-2.5 at the spine or hip * Ten-year fracture probability by FRAX of >= 3% for hip fracture or >=20% for major osteoporotic fracture. People with diagnosed cases of osteoporosis or at high risk for fracture should have regular bone mineral density tests. For patients eligible for Medicare, routine testing is allowed once every 2 years. The testing frequency can be increased to one year for patients who have rapidly progressing disease, those who are receiving or discontinuing medical therapy to restore bone mass, or have additional risk factors. Dictated by: Josh Duke M.D. on 10/06/2023 at 17:34 Approved by: Josh Duke M.D. on 10/06/2023 at 17:38
== END ==
LOC: RAD 11:36
PROVIDERS: PCP Family Medicine; Referring Provider Family Medicine; Visit Provider Family Medicine
DX: M81.0 Age-related osteoporosis without current pathological fracture (principal); M47.814 Spondylosis without myelopathy or radiculopathy, thoracic region; M16.11 Unilateral primary osteoarthritis, right hip; S32.82XS Multiple fractures of pelvis without disruption of pelvic ring, sequela; R79.0 Abnormal level of blood mineral; E11.9 Type 2 diabetes mellitus without complications; M54.6 Pain in thoracic spine; M54.50 Low back pain, unspecified; M25.552 Pain in left hip; M25.551 Pain in right hip; Z96.642 Presence of left artificial hip joint
CPT/HCPCS: 72070; 72100; 73521; 77080; 77081

== ENCOUNTER → 2023-12-04 15:35 | Outpatient (CLI) | payer MEDICARE, OTHER, SELFPAY ==
[2019-09-28 11:54] VITALS: BMI 22.3
--- NOTE | 2023-12-04 15:36 | DI.MRI.S_ITS ---
PROCEDURE: MR LUMBAR SPINE WO/W CON INDICATIONS: Spondylolisthesis TECHNIQUE: Noncontrast sagittal T1 spin echo and T2 fast spin echo, sagittal STIR, axial T1 and T2 fast spin echo through the lumbar spine. In cases with scoliosis, additional coronal T2 fast spin echo may be performed. After the administration of contrast, sagittal and axial T1 spin echo with fat saturation through the lumbar spine. COMPARISON: [facility], MR, MR LUMBAR SPINE WO CON, 08/12/2022, 13:20. FINDINGS: Image quality: Excellent Mild dextroscoliosis of the lumbar spine, centered at L3-4. Mild retrolisthesis of L3 on L4. Grade 1 anterolisthesis of L4 on L5. Vertebral body height of the lumbar spine are well maintained. Posterior spinous fixation device at L4-5. There is marked marrow edema about the right L5-S1 facet, degenerative. There is additional marked marrow edema of the right pedicle of L5, and right S1 vertebral body, favoring degenerative. Conus terminates at the level of L1-2, and is unremarkable. Right neural foraminal stenosis: None. Left neural foraminal stenosis: None. Axial images: T12-L1: No central canal stenosis. L1-2: No central canal stenosis. L3-3: No central canal stenosis. L3-4: Mild disc bulge. Mild bilateral facet arthropathy. Mild central canal stenosis. L4-5: Posterior disc uncovering, superimposed on right paracentral disc extrusion, with superior extension. Complete effacement of right lateral recess. Mild bilateral facet arthropathy. MildMild central canal stenosis. L5-S1: Moderate bilateral facet arthropathy with fluid within the right facet. No central canal stenosis. Visualized vertebral body heights are well maintained. Sacrum is intact. No abdominal aortic aneurysm. IMPRESSION: 1. Interval placement of posterior spinous fixation device at L4-5. 2. Marked marrow edema of the right L5-S1 facet with associated marrow edema of the right aspect of S1 vertebral body, favoring degenerative, grossly unchanged from prior exam. 3. Multilevel degenerative changes of the lumbar spine, most pronounced at L4-5, where there is complete effacement of the right lateral recess, and improved, mild central canal stenosis. Dictated by: Magda Spann M.D. on 12/04/2023 at 17:31 Approved by: Magda Spann M.D. on 12/04/2023 at 17:44
== END ==
PROVIDERS: PCP Family Medicine; Referring Provider Neurological Surgery; Visit Provider Neurological Surgery
DX: M43.16 Spondylolisthesis, lumbar region (principal); M47.816 Spondylosis without myelopathy or radiculopathy, lumbar region; M48.061 Spinal stenosis, lumbar region without neurogenic claudication; M51.26 Other intervertebral disc displacement, lumbar region; M47.817 Spondylosis without myelopathy or radiculopathy, lumbosacral region; Z98.1 Arthrodesis status
CPT/HCPCS: 72158; A9579

== ENCOUNTER → 2024-01-13 14:24 | Outpatient (CLI) | payer MEDICARE, OTHER, SELFPAY ==
[2019-09-28 11:54] VITALS: BMI 22.3
[2024-01-13 19:16] LABS: Bilirubin Urine UA NEGATIVE (NEGATIVE); Color Urine UA YELLOW; Glucose Urine UA NEGATIVE (Negative); Ketones Urine UA NEGATIVE (NEGATIVE); Leukocyte Esterase Urine UA 2+ (NEGATIVE); Nitrite Urine UA NEGATIVE (Negative); Occult Blood Urine UA 2+ (Negative); Protein Urine UA TRACE (Negative); Urobilinogen Urine UA 0.2 E.U./dL (0.2)
[2024-01-13 19:17] LABS: Appearance Urine UA CLOUDY
[2024-01-13 19:35] LABS: Bacteria Urine Few (2-10); Culture Indicated Urine Specimen Cultured; Mucus Urine 1+ (Negative); RBC Urine 0-1/HPF (0-5/HPF); Squamous Epithelial Cell Urine 0-1 /HPF (0-5/HPF); Urine Volume 10mL (spun); WBC Urine 30-100/HPF (0-5/HPF)
== END ==
PROVIDERS: PCP Family Medicine; Visit Provider Urology
DX: N39.0 Urinary tract infection, site not specified (principal); R39.9 Unspecified symptoms and signs involving the genitourinary system
CPT/HCPCS: 81001; 87086

== ENCOUNTER → 2024-05-04 11:16 | Outpatient (CLI) | payer MEDICARE, OTHER, SELFPAY ==
[2019-09-28 11:54] VITALS: BMI 22.3
--- NOTE | 2024-05-04 11:18 | DI.US.S_ITS ---
PROCEDURE: US RENAL COMPLETE INDICATIONS: RECURRENT UTI TECHNIQUE: Real-time scanning was performed of the kidneys and bladder, with image documentation. COMPARISON: None. FINDINGS: Kidneys: Kidneys are normal in size. Right kidney measures 9.1 cm long; left kidney measures 10.1 cm long. Right renal cortical thickness is 1.5 cm; left renal cortical thickness is 1.5 cm. Renal cortical echotexture is normal. No hydronephrosis but there are several small stones at the left mid renal collecting system, nonobstructive, the largest measuring 3 mm. No suspicious solid mass lesions. Bladder: Pre-void bladder volume is 106 mL. Post-void residual is 7.0 mL. Pre-void images demonstrate no intraluminal masses or stones. On pre-void images, bilateral ureteral jets are noted with color Doppler interrogation. (Of note, ureteral jets may not be detectable in up to 25% of cases due to insufficient differences in specific gravity between ureteral and bladder urine). Miscellaneous: No free pelvic fluid. IMPRESSION: Several nonobstructive left mid kidney small calculi are present the largest measuring 3 mm. No bladder calculus found. No hydronephrosis. Dictated by: Vickey Turner M.D. on 05/05/2024 at 9:17 Approved by: Vickey Turner M.D. on 05/05/2024 at 9:19
== END ==
PROVIDERS: PCP Family Medicine; Referring Provider Urology; Visit Provider Urology
DX: N39.0 Urinary tract infection, site not specified (principal); N20.0 Calculus of kidney
CPT/HCPCS: 76770

== ENCOUNTER → 2024-06-22 11:14 | Outpatient (CLI) | payer MEDICARE, OTHER, SELFPAY ==
[2019-09-28 11:54] VITALS: BMI 22.3
--- NOTE | 2024-06-22 11:15 | DI.MG.S_ITS ---
MM screening mammo BI: 06/22/2024. BI-RADS: 1 CLINICAL: 74-year old female for bilateral screening mammogram. Tyrer-Cuzick lifetime risk of 2.8%. No personal or first-degree family history of breast cancer. PRIOR EXAMS 06/22/2023, 06/18/2022, 04/01/2021, 03/26/2020, 03/09/2019, 02/26/2018. MAMMOGRAPHY TECHNIQUE: 2D and 3D (tomosynthesis) digital mammographic views obtained, with additional images as needed for full coverage. Current study was also evaluated with a Computer Aided Detection (CAD) system. DENSITY B. There are scattered areas of fibroglandular density. MAMMOGRAPHY FINDINGS Bilateral: No suspicious mass, asymmetry, microcalcification, or other abnormality seen. IMPRESSION: * No evidence of malignancy. RECOMMENDATIONS Bilateral * Annual screening mammography. OVERALL ASSESSMENT CATEGORY BI-RADS-1: Negative. The [employer] recommends annual screening mammography beginning at age 40 for women with average risk of breast cancer. ELECTRONICALLY SIGNED: Sola Shabazz M.D. on 06/27/2024 at 12:01:20 AM PT Interpreting Station ID: [id number]
== END ==
PROVIDERS: PCP Family Medicine; Referring Provider Family Medicine; Visit Provider Family Medicine
DX: Z12.31 Encounter for screening mammogram for malignant neoplasm of breast (principal)
CPT/HCPCS: 77063; 77067

== ENCOUNTER → 2024-12-28 11:46 | Outpatient (CLI) | payer MEDICARE, OTHER, SELFPAY ==
[2019-09-28 11:54] VITALS: BMI 22.3
--- NOTE | 2024-12-28 11:47 | DI.RAD.S_ITS ---
PROCEDURE: XR DEXA AXIAL SKELETON INDICATIONS: Not provided COMPARISON: [facility], CR, XR DEXA AXIAL SKELETON, 10/06/2023, 12:30. [facility], CR, XR DEXA AXIAL SKELETON, 09/30/2022, 13:29. FINDINGS: Right Femoral Neck: Bone mineral density 0.755 g/cm2, T score -0.8. Right Hip: Bone mineral density 0.804 g/cm2, T score -1.1, no significant change. Left Forearm: Bone mineral density 0.641 g/cm2, T score -0.9, increased by 3.4%. Fracture Risk Calculation (when applicable): 10-year fracture risk of a major osteoporotic fracture 21 percent and of a hip fracture 2.9 percent. (T score greater or equal to -1.0 to: NORMAL) (T score from -1.1 to -2.4: OSTEOPENIA) (T score less than or equal to -2.5: OSTEOPOROSIS) IMPRESSION: Low bone mineral density (osteopenia) by WHO classification. Follow-up guidelines as follows: Osteoporosis: Consider a repeat DEXA and Vertebral Fracture Assessment (VFA) exam in 2 years or sooner if medically necessary, to reassess this patient's status. Osteopenia: Consider a repeat DEXA in 2-3 years to reassess this patient's status, or if there is a new clinical indication. Normal: Consider a repeat DEXA in 5 years or sooner, or if there is a new clinical indication. All treatment decisions require clinical judgment and consideration of individual patient factors, including patient preferences, comorbidities, previous drug use, risk factors not captured in the FRAX model (e.g., frailty, falls, vitamin D deficiency, increased bone turnover, interval significant decline in bone density ) and possible under- or over-estimation of fracture risk by FRAX. In addition, the NOF Guide recommends that FDA-approved medical therapies be considered in postmenopausal women and men age >= 50 years with a: * Hip or vertebral (clinical or morphometric) fracture * T-score of <=-2.5 at the spine or hip * Ten-year fracture probability by FRAX of >= 3% for hip fracture or >=20% for major osteoporotic fracture. Dictated by: Fabrizio Cortez M.D. on 12/28/2024 at 20:34 Approved by: Fabrizio Cortez M.D. on 12/28/2024 at 20:35
== END ==
LOC: RAD 11:47
PROVIDERS: PCP Family Medicine; Referring Provider Family Medicine; Visit Provider Family Medicine
DX: M81.0 Age-related osteoporosis without current pathological fracture (principal)
CPT/HCPCS: 77080